=== PATIENT | male | born 1935 | race Caucasian/White ===

== ENCOUNTER 2024-10-03 02:20 | Inpatient (IN) | payer MEDICARE, OTHER ==
[~2024-10-03] VITALS: Ht 172.7 cm; Wt 52.2 kg
[2024-10-03] MEDS ORDERED: MAGNESIUM HYDROXIDE 30 ML LIQUID UDC PO PRN ×2 (03:30→14:30)
[2024-10-03] MEDS ORDERED: ZOLPIDEM 5 MG TABLET PO PRN (03:30)
[2024-10-03] MEDS ORDERED: MAG HYDROX/AL HYDROX/SIMETH 30 ML LIQUID UDC PO PRN (03:30)
[2024-10-03] MEDS ORDERED: LORAZEPAM 1 MG TABLET PO PRN (03:30)
[2024-10-03] MEDS: BLOOD SUGAR DIAGNOSTIC 1 EACH STRIP VI ONE (03:39)
[2024-10-03] MEDS ORDERED: ASPI81TA31 PO (03:51)
[2024-10-03] MEDS ORDERED: CARB30DR EACHEYE (03:51)
[2024-10-03] MEDS ORDERED: LORA0.5T48 PO (03:51)
[2024-10-03] MEDS ORDERED: BREX1TAB PO (03:51)
[2024-10-03] MEDS ORDERED: DIVA250T4 PO (03:51)
[2024-10-03] MEDS ORDERED: BISA10SU61 RC (03:51)
[2024-10-03] MEDS ORDERED: FURO20TA4 PO (03:51)
[2024-10-03] MEDS ORDERED: MULT-1045 PO (03:51)
[2024-10-03] MEDS ORDERED: BENZ1LOZ58 MM (03:51)
[2024-10-03] MEDS ORDERED: METO25TA6 PO (03:51)
[2024-10-03] MEDS ORDERED: INSU100V39 SQ (03:51)
[2024-10-03] MEDS ORDERED: AMLO-212 PO (03:51)
[2024-10-03] MEDS ORDERED: ATOR40TA PO (03:51)
[2024-10-03] MEDS ORDERED: APIX2.5T PO (03:51)
[2024-10-03] MEDS ORDERED: CALC-494 PO (03:51)
[2024-10-03] MEDS ORDERED: FAMO20TA8 PO (03:51)
[2024-10-03] MEDS: ACETAMINOPHEN 325 MG TABLET PO PRN (05:27)
[2024-10-03 07:30] VITALS: BP 99/48; TEMP 97.8; O2SAT 96
[2024-10-03] MEDS: DIVALPROEX SPRINKLE 125 MG CAP.SPRINK PO SCH (10:17)
[2024-10-03] MEDS ORDERED: GUAI100S9 PO (10:45)
[2024-10-03] MEDS ORDERED: [UNRECOGNIZED DRUG - CODE] EACHEYE (10:45)
[2024-10-03] MEDS ORDERED: MAGN400O6 PO (10:45)
[2024-10-03] MEDS ORDERED: ACET-73 PO (10:45)
[2024-10-03] MEDS ORDERED: NA P133E RC (10:45)
[2024-10-03] MEDS ORDERED: CHOL-35 PO (10:45)
[2024-10-03] MEDS ORDERED: ACET-2154 PO (10:45)
[2024-10-03] MEDS ORDERED: FLEET ENEMA 133 ML BOTTLE RC PRN (14:30)
[2024-10-03] MEDS ORDERED: BISACODYL 10 MG SUPP.RECT RC PRN (14:30)
[2024-10-03] MEDS ORDERED: HOME MED MISCELLANEOUS XX SCH ×2 (14:30)
[2024-10-03] MEDS ORDERED: GUAIFENESIN SUGAR FREE 100 MG/5 ML UDC PO PRN (14:30)
[2024-10-03] MEDS ORDERED: DEXTROSE 50% 50 ML DISP.SYRIN IV PRN (14:30)
[2024-10-03] MEDS ORDERED: BENZOCAINE/MENTH/CETYLPYRD LOZENGE MM PRN (14:30)
[2024-10-03] MEDS ORDERED: ACETAMINOPHEN 325 MG TABLET-SA PATIENTS-PAIN ONLY PO PRN ×2 (14:30)
[2024-10-03 16:00] VITALS: BP 96/51; TEMP 98; O2SAT 98
[2024-10-03] MEDS: BLOOD SUGAR DIAGNOSTIC 1 EACH STRIP VI SCH (16:43)
[2024-10-03] MEDS: METOPROLOL TARTRATE 25 MG TABLET PO SCH (17:00)
[2024-10-03] MEDS: POLYVINYL ALCOHOL OPHT DROPS 15 ML BOTTLE EACHEYE SCH (17:34)
[2024-10-03] MEDS: GLUCERNA SHAKE 237 ML CAN PO SCH (17:39)
[2024-10-03 20:00] VITALS: BP 101/35; TEMP 98.1; O2SAT 97
[2024-10-03] MEDS: ATORVASTATIN 40 MG TABLET PO SCH (21:12)
[2024-10-03] MEDS: CALCIUM CARB/VITAMIN D 500MG-200UNITS TABLET PO SCH (21:12)
[2024-10-03] MEDS: MINERAL OIL/PETROLAT OPHT OINT 3.5 GM TUBE EACHEYE SCH (21:12)
[2024-10-03] MEDS: QUETIAPINE FUMARATE 25 MG TABLET PO SCH (21:12)
[2024-10-03] MEDS ORDERED: APIXABAN 5 MG TABLET ONE (21:23)
[2024-10-03] MEDS: APIXABAN 2.5 MG TABLET PO SCH (21:34)
[2024-10-04] MEDS: MULTIVITAMINS,THERAPEUTIC TABLET PO SCH (09:00)
[2024-10-04] MEDS: ASPIRIN 81 MG TAB.CHEW PO SCH (09:00)
[2024-10-04] MEDS: CHOLECALCIFEROL 1,000 UNIT TABLET PO SCH (09:00)
[2024-10-04] MEDS: FAMOTIDINE 20 MG TABLET PO SCH (09:00)
[2024-10-04] MEDS: FUROSEMIDE 20 MG TABLET PO SCH (09:00)
[2024-10-04] MEDS: AMLODIPINE 5 MG TABLET PO SCH (09:00)
[2024-10-04] MEDS: DIVALPROEX SPRINKLE 125 MG CAP.SPRINK PO SCH (12:51)
[2024-10-04 15:19] VITALS: BP 98/40; TEMP 98; O2SAT 98
[2024-10-04] MEDS: ACETAMINOPHEN 325 MG TABLET PO PRN (15:21)
[2024-10-04 20:00] VITALS: BP 93/51; TEMP 98.2; O2SAT 100
[2024-10-05] MEDS: LORAZEPAM 1 MG TABLET PO PRN (03:41)
[2024-10-05 08:32] VITALS: BP 105/68; TEMP 98; O2SAT 98
[2024-10-05 16:48] VITALS: BP 101/49; TEMP 98; O2SAT 98
[2024-10-05 22:00] VITALS: BP 97/30; TEMP 98
[2024-10-05] MEDS: ZOLPIDEM 5 MG TABLET PO PRN (22:51)
[2024-10-06 04:32] VITALS: BP 120/58; O2SAT 96
[2024-10-06] MEDS ORDERED: OLANZAPINE 10 MG VIAL IM STA (07:46)
[2024-10-06] MEDS: OLANZAPINE 10 MG VIAL IM ONE (07:55)
[2024-10-06 08:18] VITALS: BP 141/61; TEMP 98; O2SAT 98
[2024-10-06] MEDS: QUETIAPINE FUMARATE 25 MG TABLET PO SCH (08:58)
[2024-10-06 16:58] VITALS: BP 127/68; TEMP 98; O2SAT 98
[2024-10-06 20:07] VITALS: BP 124/53; TEMP 97.9; O2SAT 95
[2024-10-07 08:22] VITALS: BP 130/80; TEMP 97.9; O2SAT 95
[2024-10-07 16:14] VITALS: BP 130/61; TEMP 97.9; O2SAT 95
[2024-10-07 20:00] VITALS: BP 83/50; TEMP 98.1; O2SAT 98
[2024-10-07] MEDS: INSULIN REGULAR, HUMAN 1000 UNIT/10 ML VIAL SQ PRN (21:11)
[2024-10-08 08:44] VITALS: BP 99/50; TEMP 97.6; O2SAT 97
[2024-10-08 15:53] VITALS: BP 109/56; TEMP 98.1; O2SAT 99
[2024-10-08 20:00] VITALS: BP 115/56; TEMP 97.5; O2SAT 94
[2024-10-09 04:22] LABS: *BILIRUBIN,URIN NEGATIVE (NEGATIVE); *BLOOD, URINE NEGATIVE (NEGATIVE); *CLARITY,URINE CLEAR (CLEAR); *COLOR,URINE YELLOW (YELLOW); *KETONES,URINE TRACE (NEGATIVE); *PROTEIN,URINE TRACE (NEGATIVE); *UROBILINOGEN,URINE 0.2 E.U./dl (NORMAL); LEUKOCYTE ESTERASE ,URINE NEGATIVE (NEGATIVE); NITRITE, URINE POSITIVE (NEGATIVE); UGLUCOSE NEGATIVE (NEGATIVE)
[2024-10-09 04:41] LABS: SQUAMOUS EPITHELIAL CELL,UR FEW /HPF (NONE SEEN)
[2024-10-09 09:40] VITALS: BP 97/45; TEMP 97.9
[2024-10-09] MEDS: DIVALPROEX SPRINKLE 125 MG CAP.SPRINK PO SCH ×2 (13:12→20:25)
[2024-10-09] MEDS: CEphaleXIN 250 MG CAPSULE PO SCH (13:44)
[2024-10-09 15:27] VITALS: BP 107/62; TEMP 98; O2SAT 98
[2024-10-09] MEDS: REMEDY ESSENTIAL ZINC PASTE 113 GM TOP SCH (16:26)
[2024-10-09 19:50] VITALS: BP 114/59; TEMP 98; O2SAT 96
[2024-10-09 20:00] VITALS: BP 90/51; TEMP 98; O2SAT 96
[2024-10-10 07:57] VITALS: BP 112/67; TEMP 98.2; O2SAT 96
[2024-10-10] MEDS: GLUCERNA SHAKE 237 ML CAN PO SCH (13:18)
[2024-10-10 15:33] VITALS: BP 98/42; TEMP 98.2; O2SAT 99
[2024-10-10 20:05] VITALS: BP 110/56; TEMP 98.1; O2SAT 98
[2024-10-11 08:09] VITALS: BP 113/65; TEMP 98; O2SAT 96
[2024-10-11 15:38] VITALS: BP 93/50; TEMP 98; O2SAT 98
[2024-10-11 20:22] VITALS: BP 98/51; TEMP 98.1; O2SAT 96
[2024-10-12 08:18] VITALS: BP 128/69; TEMP 98; O2SAT 95
[2024-10-12] MEDS: ACETAMINOPHEN 325 MG TABLET PO PRN (08:27)
[2024-10-12 16:34] VITALS: BP 130/51; TEMP 98; O2SAT 95
[2024-10-13] MEDS: DIVALPROEX SPRINKLE 125 MG CAP.SPRINK PO SCH (08:18)
[2024-10-13 16:29] VITALS: BP 143/91; TEMP 98; O2SAT 97
[2024-10-13] MEDS: OLANZAPINE 10 MG VIAL IM STA (18:37)
[2024-10-13 20:00] VITALS: BP 110/58; O2SAT 97
[2024-10-13] MEDS: QUETIAPINE FUMARATE 25 MG TABLET PO SCH (20:36)
[2024-10-13] MEDS: ATORVASTATIN 10 MG TABLET PO SCH (20:36)
[2024-10-14 07:23] LABS: PLATELET COUNT (AUTO) 263 K/uL (152-348); RED BLOOD CELL COUNT(AUTO) 3.20 MIL/uL (4.06-5.63); RED CELL DISTRIBUTION WIDTH 17.7 % (12.1-16.2); WHITE BLOOD COUNT (AUTO) 6.5 K/uL (3.6-10.2)
[2024-10-14 07:42] LABS: IRON, SERUM 65 ug/dL (50-175)
[2024-10-14 08:05] LABS: ASPARTATE AMINOTRANSFERASE 11 U/L (15-37); CREATININE 0.8 mg/dL (0.6-1.3); SODIUM SERUM 147 mmol/L (136-145); TOTAL PROTEIN, SERUM 6.1 g/dL (6.4-8.2); UREA NITROGEN, BLOOD 24 mg/dL (7-18)
[2024-10-14] MEDS: ASPIRIN EC 81 MG TABLET.DR PO SCH (08:18)
[2024-10-14 08:20] VITALS: BP 115/76; O2SAT 97
[2024-10-14] MEDS ORDERED: ASPIRIN EC 81 MG TABLET.DR PO SCH (09:00)
[2024-10-14 16:37] VITALS: BP 102/70; TEMP 97.4; O2SAT 97
[2024-10-14 19:47] VITALS: BP 107/58; O2SAT 99
[2024-10-15 08:21] VITALS: BP 140/72; TEMP 97.5; O2SAT 97
[2024-10-15 16:00] VITALS: BP 95/43; TEMP 97.5; O2SAT 99
[2024-10-15 20:06] VITALS: BP 113/56; TEMP 97.7; O2SAT 96
[2024-10-15] MEDS: QUETIAPINE FUMARATE 25 MG TABLET PO SCH (20:42)
[2024-10-16 08:12] VITALS: BP 105/89; TEMP 98; O2SAT 98
[2024-10-16 09:00] VITALS: BP 105/89
== END 2024-10-16 15:15 | DRG 885 ==
LOC: GPS 02:20
PROVIDERS: ADMIT Psychiatry & Neurology Psychiatry; ATTEND Nurse Practitioner Acute Care
DX: F39 Unspecified mood [affective] disorder (principal); G93.41 Metabolic encephalopathy; F03.93 Unspecified dementia, unspecified severity, with mood disturbance; F03.94 Unspecified dementia, unspecified severity, with anxiety; F03.92 Unspecified dementia, unspecified severity, with psychotic disturbance; E44.1 Mild protein-calorie malnutrition; Z68.1 Body mass index [BMI] 19.9 or less, adult; R64 Cachexia; D68.59 Other primary thrombophilia; F41.9 Anxiety disorder, unspecified; F31.9 Bipolar disorder, unspecified; E78.5 Hyperlipidemia, unspecified; Z74.09 Other reduced mobility; K21.9 Gastro-esophageal reflux disease without esophagitis; M17.0 Bilateral primary osteoarthritis of knee; Z79.899 Other long term (current) drug therapy; Z79.01 Long term (current) use of anticoagulants; I10 Essential (primary) hypertension; E11.9 Type 2 diabetes mellitus without complications; Z79.82 Long term (current) use of aspirin; R62.7 Adult failure to thrive
CPT/HCPCS: 36415; 73562; 80164; 83550; 83735; 84100; 84443; 85025; 87086; J1815; J2358